=== PATIENT | male | born 1965 | race Caucasian/White ===

== ENCOUNTER → 2020-09-06 | Outpatient (CLI) | payer BC | LOC: EXRD 14:07 | DX: M25.511 Pain in right shoulder (principal); M25.611 Stiffness of right shoulder, not elsewhere classified | CPT/HCPCS: 73030 ==

== ENCOUNTER → 2022-03-15 | Day surgery (SDC) | payer BC ==
[~2022-03-15] MED LIST: CELEXA40 MG PO; LEVOTHYROXINE25 MC1 PO; REVATIO 20 MG T20 MG PO; VALACYCLOVIR1000 MG PO
== END | disposition home or self-care (01) ==
LOC: OR 07:25
DX: Z12.11 Encounter for screening for malignant neoplasm of colon (principal); E03.9 Hypothyroidism, unspecified; R73.03 Prediabetes; Z83.71 Family history of colonic polyps
CPT/HCPCS: J2704; J3010